=== PATIENT | female | born 1965 | race Native Hawaiian/Other Pacific Islander ===

== ENCOUNTER 2021-04-29 18:00 | Outpatient (CLI) | payer MEDICARE, MEDICAID ==
[~2021-04-29 18:00] MED LIST: ALBU8.5H8 IH; AMLO-257 PO; BICT1TAB PO; DICL100G31 TP; IBUP-2071 PO; LEVO25TA9 PO; NALO4SPR NASAL; OLAN10TA74 PO; PROM-163 PO; SERT-158 PO; TIOT4MIS2 IH; TRAM50TA4 PO; TRAZ-257 PO; VARE0.5T PO; VENL-66 PO
[2021-04-29] MEDS ORDERED: OLANZapine 5 MG TABLET PO PRN (19:15)
[2021-04-29 19:22] VITALS: BP 145/90
[2021-04-29 19:23] VITALS: BP 145/90
[2021-04-29 19:31] LABS: GLUCOMETER DEV NAME(LOC) POC.BV
[2021-04-29 19:45] VITALS: BP 156/94
[2021-04-29] MEDS ORDERED: VARE0.5T7 PO (19:58)
[2021-04-29 20:00] VITALS: BP 156/75
[2021-04-29] MEDS ORDERED: OLANZapine 10 MG TABLET PO SCH (21:00)
[2021-04-30] MEDS ORDERED: LEVOTHYROXINE SODIUM 25 MCG TABLET PO SCH (06:30)
[2021-04-30 08:33] VITALS: BP 150/74
[2021-04-30] MEDS ORDERED: VENLAFAXINE HCL 37.5 MG ER CAPSULE PO SCH (09:00)
[2021-04-30] MEDS ORDERED: AmLODIPine BESYLATE 5 MG TABLET PO SCH (09:00)
[2021-04-30] MEDS ORDERED: OLANZapine 5 MG TABLET PO SCH (09:00)
== END 2021-04-30 17:00 | disposition admitted as inpatient to this hospital (09) ==
LOC: CSU 18:00
PROVIDERS: ATTEND Psychiatry & Neurology Psychiatry
DX: F25.9 Schizoaffective disorder, unspecified (principal); F32.9 Major depressive disorder, single episode, unspecified; F41.9 Anxiety disorder, unspecified; F19.10 Other psychoactive substance abuse, uncomplicated; Z20.822 Contact with and (suspected) exposure to COVID-19
CPT/HCPCS: 90792; Z7610

== ENCOUNTER 2021-04-30 16:21 | Inpatient (IN) | payer MEDICARE, MEDICAID ==
[~2021-04-30] VITALS: Ht 152.4 cm; Wt 75.3 kg
[~2021-04-30 16:21] MED LIST changes: -VARE0.5T PO; +VARE0.5T7 PO
[2021-04-30 18:02] VITALS: BP 124/78
[2021-04-30] MEDS ORDERED: ZOLPIDEM TARTRATE 5 MG TABLET PO PRN (19:30)
[2021-04-30] MEDS ORDERED: HALOPERIDOL 5 MG TABLET PO PRN (19:30)
[2021-04-30] MEDS ORDERED: INFLUENZA VIRUS VACCINE QVS 2021-22 (6MO+)/PF 60 MCG/0.5 ML SYRINGE IM. ONE (19:45)
[2021-04-30] MEDS ORDERED: PNEUMOCOCCAL VACCINE POLYVALENT 0.5 ML VIAL [PPSV23] IM. ONE (19:45)
[2021-04-30] MEDS: LORazepam 2 MG TABLET PO PRN (20:04)
[2021-04-30 20:38] VITALS: BP 145/84
[2021-04-30] MEDS ORDERED: TraMADol HCL 50 MG TABLET PO PRN (21:00)
[2021-04-30] MEDS ORDERED: PROMETHAZINE HCL 25 MG TABLET PO PRN (21:00)
[2021-04-30] MEDS ORDERED: ALBUTEROL SULFATE HFA 90 MCG/PUFF 8 GM INHALER IH PRN (21:00)
[2021-05-01 03:25] VITALS: BP 132/74
[2021-05-01] MEDS: LEVOTHYROXINE SODIUM 25 MCG TABLET PO SCH (07:15)
[2021-05-01 07:57] LABS: BASOPHILS % (AUTO) 0.6 % (0.0-2.0); EOSINOPHILS % (AUTO) 2.4 % (1.0-6.0); HEMATOCRIT 33.4 % (36-46); HEMOGLOBIN 11.1 g/dL (12.0-16.0); LYMPHOCYTES % (AUTO) 28.8 % (22.0-44.0); MEAN CORPUSCULAR HEMOGLOBIN 29.1 pg (26.0-34.0); MEAN CORPUSCULAR HGB CONC 33.3 G/dL (31.0-37.0); MEAN CORPUSCULAR VOLUME 88 fL (80-100); MONOCYTES # (AUTO) 0.3 K/uL (0.1-1.0); MONOCYTES % (AUTO) 9.9 % (2.0-9.0); NEUTROPHILS % (AUTO) 58.3 % (40.0-70.0); PLATELET COUNT (AUTO) 143 K/uL (150-450); RED BLOOD CELL COUNT(AUTO) 3.82 MIL/uL (4.00-5.20); RED CELL DISTRIBUTION WIDTH 17.7 % (11.5-14.5)
[2021-05-01 08:23] LABS: ALANINE AMINOTRANSFERASE 25 U/L (12-78); ALBUMIN 3.4 g/dL (3.4-5.0); ALKALINE PHOSPHATASE 165 U/L (46-116); ANION GAP 16 mmol/L (8-16); ASPARTATE AMINOTRANSFERASE 19 U/L (15-37); BILIRUBIN,TOTAL 0.3 mg/dL (0.1-1.0); CALCIUM, TOTAL 8.8 mg/dL (8.8-10.5); CARBON DIOXIDE 27 mmol/L (22-29); CHLORIDE 103 mmol/L (98-107); CHOL/HDL RATIO 2.2 (3.9-5.7); CHOLESTEROL 188 mg/dL (131-200); CREATININE 0.82 mg/dL (0.60-1.30); GLOMERULAR FILTR. RATE CALC > 60 mL/min (>60); GLUCOSE,RANDOM 122 mg/dL (70-110); HDL CHOLESTEROL 85 mg/dL (40-60); LDL CHOL (CALC.) 94 mg/dL (0-130); SODIUM SERUM 146 mmol/L (136-145); THYROID STIMULATING HORMONE 1.62 uIU/mL (0.36-3.74); TOTAL PROTEIN, SERUM 7.5 g/dL (6.4-8.2); TRIGLYCERIDES 47 mg/dL (15-150); UREA NITROGEN, BLOOD 21 mg/dL (7-18)
[2021-05-01 08:25] LABS: APPEARANCE,URINE CLOUDY (CLEAR); BILIRUBIN,URINE NEGATIVE (NEGATIVE); GLUCOSE, URINE (UA) NEGATIVE (NEGATIVE); KETONES,URINE NEGATIVE (NEGATIVE); LEUKOCYTE ESTERASE ,URINE TRACE (NEGATIVE); NITRATE,URINE NEGATIVE (NEGATIVE); OCCULT BLOOD,URINE NEGATIVE (NEGATIVE); PH,URINE 6.5 (5.0-8.0); PROTEIN,URINE NEGATIVE (NEGATIVE); UROBILINOGEN,URINE 0.2 mg/dL (<=1.0)
[2021-05-01 08:32] VITALS: BP 148/93
[2021-05-01 08:34] LABS: AMPHET/METH SCREEN,URINE POSITIVE (NEGATIVE); BARBITURATE SCREEN, URINE NEGATIVE (NEGATIVE); BENZODIAZEPINES SCREEN,URINE NEGATIVE (NEGATIVE); CANNABINOID SCREEN,URINE NEGATIVE (NEGATIVE); COCAINE SCREEN,URINE NEGATIVE (NEGATIVE); METHADONE SCREEN, URINE NEGATIVE (NEGATIVE); OPIATE SCREEN,URINE NEGATIVE (NEGATIVE)
[2021-05-01 08:36] LABS: PHENCYCLIDINE SCREEN,URINE NEGATIVE (NEGATIVE)
[2021-05-01] MEDS: AmLODIPine BESYLATE 5 MG TABLET PO SCH (08:48)
[2021-05-01] MEDS: BICTEGRAV/EMTRICIT/TENOFOV ALA 50-200-25 MG TABLET PO SCH (08:49)
[2021-05-01] MEDS: DICLOFENAC SODIUM 1% 100 GM GEL [2GM] TP SCH ×4 (08:49→20:04)
[2021-05-01] MEDS: TIOTROPIUM BROMIDE 18 MCG/INH HANDIHALER [5] IH SCH (08:50)
[2021-05-01] MEDS ORDERED: VARENICLINE TARTRATE 0.5 MG TABLET PO SCH ×2 (09:00)
[2021-05-01] MEDS: LORazepam 2 MG TABLET PO PRN ×2 (09:04→16:15)
[2021-05-01 09:24] LABS: BACTERIA,URINE None Seen /HPF (None Seen); CALCIUM OXALATE CRYSTALS,UR Few /LPF (None Seen); RBC,URINE None Seen /HPF (0-2); SQUAMOUS EPITHELIAL CELL,UR Few /LPF (None Seen); WBC,URINE 0-2 /HPF (0-5)
[2021-05-01 16:20] VITALS: BP 144/77
[2021-05-01 17:23] LABS: FREE T4 (FREE THYROXINE) 0.83 ng/dL (0.76-1.46)
[2021-05-01] MEDS: OLANZapine 10 MG TABLET PO SCH (20:04)
[2021-05-01] MEDS: TraZODone HCL 100 MG TABLET PO SCH (20:04)
[2021-05-02 01:10] VITALS: BP 133/73
[2021-05-02] MEDS: LEVOTHYROXINE SODIUM 25 MCG TABLET PO SCH (06:35)
[2021-05-02 08:31] VITALS: BP 123/68
[2021-05-02] MEDS: VARENICLINE TARTRATE 0.5 MG TABLET PO SCH (09:00)
[2021-05-02] MEDS: BICTEGRAV/EMTRICIT/TENOFOV ALA 50-200-25 MG TABLET PO SCH (09:07)
[2021-05-02] MEDS: AmLODIPine BESYLATE 5 MG TABLET PO SCH (09:07)
[2021-05-02] MEDS: SERTRALINE HCL 50 MG TABLET PO SCH (09:07)
[2021-05-02] MEDS: DICLOFENAC SODIUM 1% 100 GM GEL [2GM] TP SCH ×4 (09:09→20:35)
[2021-05-02] MEDS: TIOTROPIUM BROMIDE 18 MCG/INH HANDIHALER [5] IH SCH (09:09)
[2021-05-02] MEDS: LORazepam 2 MG TABLET PO PRN ×2 (09:28→18:26)
[2021-05-02 16:33] VITALS: BP 140/88
[2021-05-02] MEDS: OLANZapine 10 MG TABLET PO SCH (20:10)
[2021-05-02] MEDS: TraZODone HCL 100 MG TABLET PO SCH (20:10)
[2021-05-03 02:10] VITALS: BP 131/71
[2021-05-03] MEDS ORDERED: ACETAMINOPHEN 325 MG TABLET PO PRN (06:00)
[2021-05-03] MEDS ORDERED: CloNIDine HCL 0.1 MG TABLET PO PRN (06:00)
[2021-05-03] MEDS ORDERED: ONDANSETRON HCL 4 MG TABLET PO PRN (06:00)
[2021-05-03] MEDS ORDERED: BENZOCAINE/MENTHOL LOZENGE PO PRN (06:00)
[2021-05-03] MEDS ORDERED: MAGNESIUM HYDROXIDE SUSPENSION 30 ML UDCUP PO PRN (06:00)
[2021-05-03] MEDS ORDERED: OMEPRAZOLE 20 MG CAPSULE PO PRN (06:00)
[2021-05-03] MEDS ORDERED: ALBUTEROL SULFATE HFA 90 MCG/PUFF 8 GM INHALER IH PRN (06:00)
[2021-05-03] MEDS ORDERED: PETROLATUM,WHITE 28 GM JELLY TP PRN (06:00)
[2021-05-03] MEDS ORDERED: IBUPROFEN 600 MG TABLET PO PRN (06:00)
[2021-05-03] MEDS ORDERED: DOCUSATE SODIUM 100 MG CAPSULE PO PRN (06:00)
[2021-05-03] MEDS ORDERED: MAG HYDROX/AL HYDROX/SIMETH ES 30 ML SUSPENSION UDCUP PO PRN (06:00)
[2021-05-03] MEDS ORDERED: BACITRACIN 28 GM OINTMENT TP PRN (06:00)
[2021-05-03] MEDS: LEVOTHYROXINE SODIUM 25 MCG TABLET PO SCH (06:41)
[2021-05-03 08:24] VITALS: BP 118/74
[2021-05-03] MEDS ORDERED: DENTURE ADHESIVE 68 GM CREAM DT PRN (08:30)
[2021-05-03] MEDS: AmLODIPine BESYLATE 5 MG TABLET PO SCH (08:44)
[2021-05-03] MEDS: SERTRALINE HCL 50 MG TABLET PO SCH (08:44)
[2021-05-03] MEDS: VARENICLINE TARTRATE 0.5 MG TABLET PO SCH (08:47)
[2021-05-03] MEDS: TIOTROPIUM BROMIDE 18 MCG/INH HANDIHALER [5] IH SCH (08:48)
[2021-05-03] MEDS: BICTEGRAV/EMTRICIT/TENOFOV ALA 50-200-25 MG TABLET PO SCH (08:49)
[2021-05-03] MEDS: DICLOFENAC SODIUM 1% 100 GM GEL [2GM] TP SCH ×4 (08:50→21:08)
[2021-05-03] MEDS: LORazepam 2 MG TABLET PO PRN (08:55)
[2021-05-03] MEDS: LOPERAMIDE HCL 2 MG CAPSULE PO PRN ×2 (08:58→16:38)
[2021-05-03 16:33] VITALS: BP 128/78
[2021-05-03] MEDS: OLANZapine 10 MG TABLET PO SCH (20:26)
[2021-05-03] MEDS: TraZODone HCL 100 MG TABLET PO SCH (20:26)
[2021-05-03] MEDS ORDERED: [UNRECOGNIZED DRUG - OTHER] PO PRN (22:15)
[2021-05-04 00:07] VITALS: BP 130/90
[2021-05-04] MEDS: LEVOTHYROXINE SODIUM 25 MCG TABLET PO SCH (06:27)
[2021-05-04 08:25] VITALS: BP 122/69
[2021-05-04] MEDS: SERTRALINE HCL 50 MG TABLET PO SCH (08:27)
[2021-05-04] MEDS: AmLODIPine BESYLATE 5 MG TABLET PO SCH (08:27)
[2021-05-04] MEDS: BICTEGRAV/EMTRICIT/TENOFOV ALA 50-200-25 MG TABLET PO SCH (08:27)
[2021-05-04] MEDS: TIOTROPIUM BROMIDE 18 MCG/INH HANDIHALER [5] IH SCH (08:29)
[2021-05-04] MEDS: DICLOFENAC SODIUM 1% 100 GM GEL [2GM] TP SCH ×4 (08:29→20:24)
[2021-05-04] MEDS: VARENICLINE TARTRATE 0.5 MG TABLET PO SCH (08:29)
[2021-05-04] MEDS: LORazepam 2 MG TABLET PO PRN ×2 (12:46→18:53)
[2021-05-04 16:23] VITALS: BP 121/69
[2021-05-04] MEDS: OLANZapine 10 MG TABLET PO SCH (20:19)
[2021-05-04] MEDS: TraZODone HCL 100 MG TABLET PO SCH (20:19)
[2021-05-05 01:25] VITALS: BP 114/72
[2021-05-05] MEDS: LEVOTHYROXINE SODIUM 25 MCG TABLET PO SCH (07:03)
[2021-05-05 08:18] VITALS: BP 116/64
[2021-05-05] MEDS: VARENICLINE TARTRATE 0.5 MG TABLET PO SCH (08:38)
[2021-05-05] MEDS: BICTEGRAV/EMTRICIT/TENOFOV ALA 50-200-25 MG TABLET PO SCH (08:38)
[2021-05-05] MEDS: LORazepam 2 MG TABLET PO PRN ×2 (08:39→13:27)
[2021-05-05] MEDS: SERTRALINE HCL 50 MG TABLET PO SCH (08:39)
[2021-05-05] MEDS: AmLODIPine BESYLATE 5 MG TABLET PO SCH (08:39)
[2021-05-05] MEDS: MULTIVITAMINS WITH MINERALS, THERAPEUTIC TABLET PO SCH (08:39)
[2021-05-05] MEDS: TIOTROPIUM BROMIDE 18 MCG/INH HANDIHALER [5] IH SCH (08:41)
[2021-05-05] MEDS: DICLOFENAC SODIUM 1% 100 GM GEL [2GM] TP SCH ×4 (08:41→20:42)
[2021-05-05] MEDS ORDERED: MUPIROCIN CALCIUM 2% 15 GM CREAM TP SCH (09:00)
[2021-05-05 16:18] VITALS: BP 129/97
[2021-05-05] MEDS: MUPIROCIN CALCIUM 2% 22 GM OINTMENT TP SCH (17:28)
[2021-05-05] MEDS: LOPERAMIDE HCL 2 MG CAPSULE PO PRN (18:51)
[2021-05-05] MEDS: TraZODone HCL 100 MG TABLET PO SCH (20:42)
[2021-05-05] MEDS: SULFAMETHOX/TRIMETH DS 800-160 MG/TABLET PO SCH (20:42)
[2021-05-05] MEDS: OLANZapine 10 MG TABLET PO SCH (20:42)
[2021-05-06 00:22] VITALS: BP 136/77
[2021-05-06] MEDS: LORazepam 2 MG TABLET PO PRN ×2 (00:36→08:41)
[2021-05-06] MEDS: LOPERAMIDE HCL 2 MG CAPSULE PO PRN (00:37)
[2021-05-06] MEDS: LEVOTHYROXINE SODIUM 25 MCG TABLET PO SCH (06:43)
[2021-05-06] MEDS: BICTEGRAV/EMTRICIT/TENOFOV ALA 50-200-25 MG TABLET PO SCH (08:41)
[2021-05-06] MEDS: SERTRALINE HCL 50 MG TABLET PO SCH (08:41)
[2021-05-06] MEDS: AmLODIPine BESYLATE 5 MG TABLET PO SCH (08:41)
[2021-05-06] MEDS: MULTIVITAMINS WITH MINERALS, THERAPEUTIC TABLET PO SCH (08:41)
[2021-05-06] MEDS: VARENICLINE TARTRATE 0.5 MG TABLET PO SCH (08:41)
[2021-05-06] MEDS: TIOTROPIUM BROMIDE 18 MCG/INH HANDIHALER [5] IH SCH (08:43)
[2021-05-06] MEDS: MUPIROCIN CALCIUM 2% 22 GM OINTMENT TP SCH ×2 (08:45→16:42)
[2021-05-06] MEDS: DICLOFENAC SODIUM 1% 100 GM GEL [2GM] TP SCH ×4 (08:46→20:56)
[2021-05-06] MEDS: SULFAMETHOX/TRIMETH DS 800-160 MG/TABLET PO SCH ×2 (08:53→20:56)
[2021-05-06 09:14] VITALS: BP 127/81
[2021-05-06 16:13] VITALS: BP 125/79
[2021-05-06] MEDS: TraZODone HCL 100 MG TABLET PO SCH (20:55)
[2021-05-06] MEDS: OLANZapine 10 MG TABLET PO SCH (20:56)
[2021-05-07 06:22] VITALS: BP 121/78
[2021-05-07] MEDS: LEVOTHYROXINE SODIUM 25 MCG TABLET PO SCH (06:41)
[2021-05-07 08:56] VITALS: BP 123/70
[2021-05-07] MEDS: BICTEGRAV/EMTRICIT/TENOFOV ALA 50-200-25 MG TABLET PO SCH (09:20)
[2021-05-07] MEDS: MULTIVITAMINS WITH MINERALS, THERAPEUTIC TABLET PO SCH (09:20)
[2021-05-07] MEDS: AmLODIPine BESYLATE 5 MG TABLET PO SCH (09:20)
[2021-05-07] MEDS: SULFAMETHOX/TRIMETH DS 800-160 MG/TABLET PO SCH (09:20)
[2021-05-07] MEDS: VARENICLINE TARTRATE 0.5 MG TABLET PO SCH (09:21)
[2021-05-07] MEDS: SERTRALINE HCL 50 MG TABLET PO SCH (09:21)
[2021-05-07] MEDS: TIOTROPIUM BROMIDE 18 MCG/INH HANDIHALER [5] IH SCH (09:22)
[2021-05-07] MEDS: MUPIROCIN CALCIUM 2% 22 GM OINTMENT TP SCH (09:26)
[2021-05-07] MEDS: DICLOFENAC SODIUM 1% 100 GM GEL [2GM] TP SCH ×2 (09:27→13:01)
[2021-05-07] MEDS ORDERED: LEVO25TA9 PO (21:16)
[2021-05-07] MEDS ORDERED: SULF-261 PO (21:16)
== END 2021-05-07 15:15 | disposition home or self-care (01) | DRG 885 ==
LOC: B3A 18:12
PROVIDERS: ADMIT Psychiatry & Neurology Psychiatry; ATTEND Psychiatry & Neurology Psychiatry
DX: F25.9 Schizoaffective disorder, unspecified (principal); F41.9 Anxiety disorder, unspecified; F32.A Depression, unspecified; E66.9 Obesity, unspecified; G47.00 Insomnia, unspecified; I10 Essential (primary) hypertension; J44.9 Chronic obstructive pulmonary disease, unspecified; K59.00 Constipation, unspecified; M16.10 Unilateral primary osteoarthritis, unspecified hip; Z21 Asymptomatic human immunodeficiency virus [HIV] infection status; Z90.710 Acquired absence of both cervix and uterus; Z98.890 Other specified postprocedural states; Z88.0 Allergy status to penicillin; Z68.32 Body mass index [BMI] 32.0-32.9, adult
CPT/HCPCS: 80053; 80061; 80307; 81001; 83036; 84439; 84443; 85025; 86592; 87070; 87081; 87205; Q9967